=== PATIENT | female | born 1980 | race Caucasian/White ===

== ENCOUNTER → 2016-06-30 | Outpatient (CLI) | payer OTHER | LOC: FIMAGING 08:32 | PROVIDERS: ATTEND Obstetrics & Gynecology | DX: O09.522 Supervision of elderly multigravida, second trimester (principal); Z98.891 History of uterine scar from previous surgery; Z3A.19 19 weeks gestation of pregnancy ==

== ENCOUNTER → 2016-09-10 | Outpatient (CLI) | payer OTHER | LOC: FIMAGING 11:34 | PROVIDERS: ATTEND Obstetrics & Gynecology | DX: O09.523 Supervision of elderly multigravida, third trimester (principal); Z3A.29 29 weeks gestation of pregnancy ==

== ENCOUNTER 2016-11-12 17:19 | Inpatient (IN) | payer OTHER ==
[2016-11-12] MEDS ORDERED: TERBUTALINE SULFATE 1 MG/ML VIAL ONE (17:39)
[2016-11-12] MEDS ORDERED: OXYTOCIN 10 UNIT/ML VIAL ONE (17:39)
[2016-11-12] MEDS ORDERED: MISOPROSTOL 200 MCG TAB ONE (17:39)
--- NOTE | 2016-11-12 17:41 | OBPROG ---
OBG Labor Progress Note Assessment/Plan: Assessment:cat 1 fhr contractions irregular on the monitor clear fluid noted grossly ruptured nitrazine positive coping well call to dr. ocsar for POC dr. guerra notified ate at 1200 nkda Plan:repeat c/s prep for surgery now 11/12/16 17:39 Subjective: Came in with complaint of rom since 1600. Clear fluid noted on pad on admit. States felt irregular contractions since [address] regular [address] way to the hospital. States feeling decreased movement since rom - Physical Exam General Appearance: WD/WN, alert, no apparent distress Respiratory: chest non-tender, lungs clear, normal breath sounds Cardiac/Chest: regular rate, rhythm Abdomen: normal bowel sounds Extremities: normal range of motion, non-tender, normal inspection DTR- Lower Extremities: Knee (R): 1+, Knee (L): 1+ (no clonus) Skin: normal color, warm/dry Neuro/Psych: no motor/sensory deficits, alert, normal mood/affect, oriented x 3 ICD10 Worksheet Patient Problems: Problems Problem Status Onset delivery delivered Acute
[2016-11-12] MEDS ORDERED: PHENYLEPHRINE 10 MG/ML SDV ONE (17:48)
[2016-11-12] MEDS ORDERED: OXYTOCIN 100 UNITS/10 ML VIAL ONE (17:48)
[2016-11-12] MEDS ORDERED: ceFAZolin 2 GM/DEXTROSE 100 ML IV ONE (17:48)
[2016-11-12] MEDS ORDERED: CITRIC ACID/SODIUM CITRATE 30 ML UDCUP PO ONE (17:48)
[2016-11-12] MEDS ORDERED: BUPIVACAINE/DEXTROSE 7.5MG/ML 2 ML SPINAL AMP SP ONE (17:48)
[2016-11-12] MEDS ORDERED: LR 500 ML IV ONE (17:48)
[2016-11-12] MEDS ORDERED: fentaNYL 100 MCG/2 ML INJ ONE (17:49)
[2016-11-12] MEDS ORDERED: morphINE PF 5 MG/10 ML INJ ONE (17:49)
[2016-11-12 17:57] LABS: % IMMATURE GRANULYOCYTES 0.8 % (0.0-1.1); ABSOLUTE IMMATURE GRANULOCYTES 0.08 10^3/uL (0.00-0.10); ADD DIFF? NO; ADD MORPH? NO; ADD SCAN? NO; ATYPICAL LYMPHOCYTE FLAG 0 (0-99); FRAGMENT RBC FLAG 0 (0-99); HEMATOCRIT 39.1 % (38.0-47.0); HEMOGLOBIN 13.3 g/dL (12.6-16.3); LEFT SHIFT FLG 10 (0-99); LIPEMIA HEMOLYSIS FLAG 90 (0-99); MEAN CELL HEMOGLOBIN 29.4 pg (27.9-34.1); MEAN CELL VOLUME 86.5 fL (81.5-99.8); MEAN PLATELET VOLUME 12.8 fL (8.7-11.7); PLATELET CLUMPS FLAG 30 (0-99); PLATELET COUNT 173 10^3/uL (150-400); RED BLOOD CELL COUNT 4.52 10^6/uL (4.18-5.33); RED CELL DISTRIBUTION WIDTH 13.7 % (11.5-15.2)
[2016-11-12] MEDS ORDERED: LR 1,000 ML IV SCH (18:00)
[2016-11-12] MEDS ORDERED: ONDANSETRON 4 MG/2 ML VIAL ONE (18:16)
--- NOTE | 2016-11-12 18:41 | GHP ---
[f rep st] HISTORY AND PHYSICAL DATE OF ADMISSION: 11/12/2016 HISTORY OF PRESENT ILLNESS: The patient is a 35-year-old 2, para 1, with an EDC of 11/22/19 17, which gives her a gestational age of 38-5/7 weeks, who comes in with a complaint of rupture of m embranes since 4 o'clock on 11/12/2016, clear fluid. States feeling irregular contractions since 14 00 on 11/12/2016. More regular contractions since about 5 o'clock right before she got to the [facility]. The patient is leaking clear fluid with some bloody show. Diminished movement on admiss ion, category 1 strip after placed on monitor. MEDICAL HISTORY: Patient has a history of genital HSV, chlamydia in 2015. Previous urinary tract i nfections. Some history of depression. Previous in 2014 for breech. Delivered early due to thrombocytopenia. PAST SURGERY: Breast augmentation, knee surgery, wisdom teeth extraction and a previous C section. GYNECOLOGICAL HISTORY: Previous use of OCPs. Paps have been within normal limits. HISTORY: The patient is AMA, HSV positive, taking prophylaxis since 36 weeks. The patien t also has decreased platelets. The patient has been receiving care through [facility] si nce 37-3/7 weeks, was a transfer from [facility]. SOCIAL HISTORY: Patient is . Moshe is her significant other. Denies smoking. Denies drug us e. FAMILY HISTORY: Noncontributory. ALLERGIES: The patient is not allergic to any medication. MEDICATIONS SHE IS TAKING: Valtrex as well as vitamins. LABORATORY: Patient is O positive. Antibody negative. Rubella immune. Hepatitis negative. HIV n egative. Trio screen is negative. [facility] baseline labs on 10/19/2016 were within normal limits. Plat elets at that time were 149. Urine culture was negative. Gonorrhea and chlamydia were negative. A FP was negative on 06/25/2016. Progenity was negative. One hour GTT was within normal limits on 01/2017. The patient's GBS was negative. PHYSICAL EXAMINATION: GENERAL: Patient is awake, alert, oriented x3. LUNGS: Clear bilaterally. ABDOMEN: Bowel sounds are positive in all 4 quadrants. EXTREMITIES: DTRs are 1+ bilaterally. Nicole ans sign is negative. RUPTURE OF MEMBRANES: The patient was grossly ruptured but did verify with Ni trazine that it was positive. Continuing to leak clear fluid with positive bloody show. Category 1 strip. PLAN OF CARE: Repeat section. Dr. Darshana Madden was called as well as Anesthesia and kimberly n of care was discussed. /[id number]/MODL
[2016-11-12 19:07] LABS: BASE EXCESS CORD -1.9 mEq/L (-13.6--3.2); PH ARTERIAL CORD BLOOD 7.34 (7.10-7.37)
[2016-11-12 19:08] LABS: PH VENOUS CORD BLOOD 7.38 (7.20-7.42)
[2016-11-12] MEDS ORDERED: ACETAMINOPHEN 325 MG TAB PO PRN (19:55)
[2016-11-12] MEDS ORDERED: PROMETHAZINE HCL 25 MG/ML INJ IVP PRN (19:55)
[2016-11-12] MEDS ORDERED: PHENYLEPHRINE HCL 100 MCG/ML SYR IVP PRN (20:01)
[2016-11-12] MEDS ORDERED: MEPERIDINE 25 MG/ML SYR IVP PRN (20:01)
[2016-11-12] MEDS ORDERED: NALOXONE HCL 0.4 MG/ML INJ IVP PRN ×2 (20:01)
[2016-11-12] MEDS ORDERED: HYDROmorphONE/DILAUDID 1 MG/ML SYR IVP PRN (20:01)
[2016-11-12] MEDS ORDERED: fentaNYL 100 MCG/2 ML INJ IVP PRN (20:01)
[2016-11-12] MEDS ORDERED: OXYCODONE/APAP 5/325 TAB PO PRN (20:01)
[2016-11-12] MEDS ORDERED: ONDANSETRON 4 MG/2 ML VIAL IVP PRN ×2 (20:01)
--- NOTE | 2016-11-12 20:01 | OBDEL ---
Info Type: Repeat GBS+: No Indications for Delivery: SROM (Previous c/s) Vaginal Delivery - Labor and Delivery Onset of Contractions Date: 11/12/16 Onset of Contractions Time: 17:00 Cord Gases: Cord Gases Cord Blood PCO2 46.0 mmHg (37-60) 11/12/16 18:58 Cord Base Excess -1.9 mEq/L (-13.6--3.2) H 11/12/16 18:58 Cord ABG pH 7.34 (7.10-7.37) 11/12/16 18:58 Cord VBG pH 7.38 (7.20-7.42) 11/12/16 18:58 Operative Report - Delivery Pre-op Diagnoses: Previous c/s; Malpresentation-sandee breech; SROM Post-op Diagnoses: Previous c/s; Malpresentation-sandee breech; SROM; uterine window Nulliparous Prior to Delivery: No Presentation at Delivery: Breech Procedure: Unscheduled (SROM with painful ctx's), Low Transverse, Other (Specify ) (Removal of keloid scar) Surgeon: Darshana Madden Computer Engineering Technologist: Anitra Villarreal Anesthesiologist: Shad Cabrera Child Support Case Officer/INSPECTION MACHINE TENDER: Christiane Landaverde L&Cassy Analgesia/Anesthesia Type: Spinal Complications: Other (Specify) (Uterine window-very low thin BRIELLE) Findings: A viable male infant with 7 and 9 Apgars in sandee breech presentation; placenta delivered manually intact with 3-vc sent to pathology; cord blood as well as cord gases obtained; uterine window noted upon dissection of bladder flap. Grossly normal appearing uterus, tubes and ovaries Specimen(s)/Path: Placenta IV Fluid (ml): 2,600 EBL: 800 cc UO: 200 cc clear urine at the end of procedure Cord Gases: Cord Gases Cord Blood PCO2 46.0 mmHg (37-60) 11/12/16 18:58 Cord Base Excess -1.9 mEq/L (-13.6--3.2) H 11/12/16 18:58 Cord ABG pH 7.34 (7.10-7.37) 11/12/16 18:58 Cord VBG pH 7.38 (7.20-7.42) 11/12/16 18:58 Stanton Data Beard Delivery Date: 11/12/16 Delivery Time: 18:53 CHASITY: 11/21/16 Gestational Age: 38 week(s) and 5 day(s) Sex of Infant: Male Score (1 Min): 7 Score (5 Min): 9 ICD10 Worksheet Patient Problems: Problems Problem Status Onset Status post repeat low transverse section Acute SROM (spontaneous rupture of membranes) Acute Breech presentation Acute Previous section complicating Acute
--- NOTE | 2016-11-12 20:06 | POSTANESTH ---
Post Anesthetic Evaluation Cardiovascular Status: Normal, Stable Respiratory Status: Normal, Stable Level of Consciousness/Mental Status: Can Participate in Eval Pain Control: Adequate, Prn Tx Ordered Nausea/Vomiting Control: Adequate, Prn Tx Ordered Complications Possibly Related to Anesthesia: None Noted
[2016-11-12] MEDS ORDERED: OXYCODONE/APAP 5/325 TAB PO SCH (22:00)
[2016-11-13] MEDS: KETOROLAC 30 MG/1 ML SDV IVP SCH ×4 (05:36→23:51)
--- NOTE | 2016-11-13 13:18 | OBPP ---
Progress Note Assessment/Plan: Assessment: 35 y/o POD #1 s/p Rpt LTCS doing well. Plan: D/c mclaughlin, po pain meds. Ambulate with assistance and pt may shower when ambulating without difficulty. 11/13/16 13:17 Subjective: Pt is doing well this am. She has good pain control with Toradol and Duramorph. She has ambulated without difficulty and denies n/v. Baby is doing well with a good latch. Objective: 11/13/16 06:30 Patient ABO/Rh O POSITIVE 11/12/16 17:30 Temp Pulse Resp BP Pulse Ox 36.3 C 78 17 110/69 98 11/13/16 12:15 11/13/16 12:15 11/13/16 12:15 11/13/16 12:15 11/13/16 12:15 Uterine Position/Fundal Height: Umbilicus -2 Uterine Tone: Firm Physical Exam - Physical Exam General Appearance: WD/WN, alert, no apparent distress Neck: non-tender, full range of motion, supple Respiratory: chest non-tender, lungs clear, normal breath sounds Cardiac/Chest: regular rate, rhythm Abdomen: normal bowel sounds, incision (c/d/i) Extremities: swelling (no), Rose's sign (neg)
--- NOTE | 2016-11-13 14:49 | GOP ---
[f rep st] OPERATIVE REPORT DATE OF OPERATION: 11/12/2016 SURGEON: Darshana Madden DO NOODLE PRESS OPERATOR: Anitra Villarreal CNM. ANESTHESIA: Spinal. ANESTHESIOLOGIST: Shad Cabrera MD. PREOPERATIVE DIAGNOSIS: 1. Intrauterine at 38 weeks and 5 days. 2. Previous section. 3. Malpresentation, breech. 4. Spontaneous rupture of membranes, painful contractions. POSTOPERATIVE DIAGNOSIS: 1. Intrauterine at 38 weeks and 5 days. 2. Previous section. 3. Malpresentation, breech. 4. Spontaneous rupture of membranes, painful contractions. 5. Uterine window. PROCEDURE PERFORMED: Repeat section, removal of keloid scar. FINDINGS: A viable male infant, with 7 and 9 Apgars in sandee breech presentation. Cord gases: ABG 7.34, VBG 7.3. Placenta delivered manually intact with 3-vessel cord, sent to Pathology. Cord blood was obtained. A uterine window was noted upon dissection of bladder flap. Grossly normal- appearing uterus, tubes, and ovaries bilaterally. ESTIMATED BLOOD LOSS: 800 cc. INDICATIONS: Patient is a 35-year-old 2, para 1, at 38 and 5/7 weeks who presents to labor and delivery with spontaneous rupture of membranes. The patient states tila every 10-15 minutes. They are getting more painful. Denies any vaginal bleeding. Good movement noted. The patient does have a history of previous C section. Declines a trial of labor. On recent ultrasound, baby was in breech presentation. Surgical consents were obtained. We discussed the risks, benefits, alternatives, including removal of keloid scar and risks of bleeding, infection, damage to surrounding organs. The patient understands all risks at this time and wants to proceed with surgery. DESCRIPTION OF PROCEDURE: Patient was taken to the operating room where spinal anesthesia was administered without difficulty. The patient was prepped and draped in the usual sterile fashion, dorsal supine position with leftward tilt. Previous incision with keloid scar was removed using a scalpel and Allis clamps. This was carried through to the underlying layer of fascia using the Bovie. The fascia was incised in the midline and extended laterally using the Red scissors. There were noted to be some adhesions here from previous surgery. Nellie clamps were used to elevate the superior aspect of the fascial incision and the underlying rectus muscles were dissected off using the Red scissors as well as bluntly. Attention was turned to the inferior aspect of the fascial incision, which in a similar fashion was grasped with Nellie clamps , elevated, and the underlying rectus muscles dissected off bluntly as well as using the Red scissors. Rectus muscles were then dissected in the midline. The peritoneum was identified, and entered bluntly. Incision was then extended superiorly and inferiorly with good visualization of the bladder. The bladder blade was inserted. Vesicouterine peritoneum was identified, entered sharply with Metzenbaum scissors. Incision was then extended laterally and as the bladder flap was created digitally, there was a uterine window noted and uterine incision had been made digitally with visualization of the baby. The uterine incision was extended anteriorly and posteriorly with manual traction. The was delivered in sandee breech position without difficulty. The cord was clamped x2 and cut, and the infant was handed off to the waiting nursery nurse. It was a viable male , with 7 and 9 Apgars. Cord blood as well as cord gases were obtained. Placenta was then delivered manually intact with three-vessel cord, and sent to Pathology. Uterus was unable to be exteriorized , so it remained in the abdomen. We did clear it of all clots and debris and any remaining placental tissue. Uterine incision was then repaired in 2 layers using 0 Vicryl. Hemostasis was visualized. All gutters were then cleaned of any blood and blood clots were removed. The uterine incision was re-examined and noted to be oozy, so at this time surgical Nhan was placed on the uterine incision and hemostasis was noted. Rectus muscles were then reapproximated in the midline using 3-0 Vicryl. The fascia was then closed with 0 Vicryl suture. Subcutaneous was closed with 3-0 Vicryl. Hemostasis was noted. The skin was then closed with 4-0 Vicryl on a Zbigniew needle and covered with Steri-Strips. Sponge, lap, and instrument counts were correct x2. Patient tolerated the procedure, no complications. The patient was stable at the completion the procedure, was transferred to recovery room in stable condition. IV FLUIDS: 2600 cc LR. URINE OUTPUT: 200 cc of clear urine at the end of procedure. PATHOLOGY: Placenta. /[id number]/MODL MTDD
[2016-11-13] MEDS: DOCUSATE SODIUM 100 MG CAP PO PRN ×2 (15:49→22:15)
[2016-11-13] MEDS: IRON POLYSAC/IRON HEME 28 MG TAB PO SCH (15:49)
[2016-11-13] MEDS: SIMETHICONE 80 MG TAB CHEW PO PRN (23:51)
[2016-11-14] MEDS: IBUPROFEN 600 MG TAB PO PRN ×3 (06:20→19:16)
--- NOTE | 2016-11-14 08:48 | OBPP ---
Progress Note Assessment/Plan: Assessment: well denies difficulties nipples intact pain well managed ff@u scant rubra lochia incision approximated with ss applied vs wnl passing gas voiding without difficulty no swelling noted Plan: 11/12/16 17:39 11/14/16 08:46 Subjective: doing well denies difficulties. Small bruising to abdomen." There is a knot there" Objective: 11/13/16 06:30 Patient ABO/Rh O POSITIVE 11/12/16 17:30 Temp Pulse Resp BP Pulse Ox 37.1 C 89 16 112/72 94 11/14/16 01:10 11/14/16 01:10 11/14/16 01:10 11/14/16 01:10 11/13/16 16:00 Uterine Position/Fundal Height: At Umbilicus Uterine Tone: Firm Physical Exam - Physical Exam General Appearance: WD/WN, alert, no apparent distress Respiratory: chest non-tender, lungs clear, normal breath sounds Cardiac/Chest: regular rate, rhythm Abdomen: normal bowel sounds Extremities: normal range of motion, Rose's sign (negative bilaterally) DTR- Lower Extremities: Knee (R): 1+, Knee (L): 1+ (no clonus) Back: Normal inspection Skin: normal color, warm/dry Neuro/Psych: no motor/sensory deficits, alert, normal mood/affect, oriented x 3
[2016-11-14] MEDS: DOCUSATE SODIUM 100 MG CAP PO PRN (09:50)
[2016-11-14] MEDS: SIMETHICONE 80 MG TAB CHEW PO PRN ×2 (09:50→16:01)
[2016-11-14] MEDS: IRON POLYSAC/IRON HEME 28 MG TAB PO SCH (09:50)
[2016-11-14] MEDS ORDERED: MAGNESIUM HYDROXIDE 30 ML UDCUP PO PRN (10:42)
[2016-11-14] MEDS ORDERED: BISACODYL 10 MG SUPP PR PRN (10:42)
[2016-11-14] MEDS ORDERED: LACTULOSE 20 GM/30 ML UDCUP PO PRN (10:42)
[2016-11-14] MEDS ORDERED: POLYETHYLENE GLYCOL 3350 17 GM PKT PO PRN (10:42)
[2016-11-14] MEDS: SENNOSIDES/DOCUSATE SODIUM TAB PO SCH ×2 (12:51→21:41)
[2016-11-14 19:22] VITALS: RESP 18
[2016-11-15] MEDS: IBUPROFEN 600 MG TAB PO PRN ×2 (01:42→07:47)
[2016-11-15] MEDS: IRON POLYSAC/IRON HEME 28 MG TAB PO SCH (08:20)
[2016-11-15 08:47] VITALS: BP 117/79; PULSE 74; TEMP 98; O2SAT 97
[2016-11-15] MEDS: SENNOSIDES/DOCUSATE SODIUM TAB PO SCH (10:40)
--- NOTE | 2016-11-15 12:36 | OBPP ---
Progress Note Assessment/Plan: Assessment: 35 y/o POD #3 s/p Rpt LTCS doing well. Plan: D/c home with Ibuprofen and iron. Return to [facility] 2, 4 and 6 weeks. 11/13/16 13:17 11/15/16 12:35 Subjective: Pt is doing well. She has min pain controlled with Ibuprofen only. She is ambulating and voiding and had + BM. Breast feeding is going well, they are working on latching and baby is doing well. They are ready to d/c home. Objective: 11/13/16 06:30 Patient ABO/Rh O POSITIVE 11/12/16 17:30 Temp Pulse Resp BP Pulse Ox 36.6 C 74 18 117/79 97 11/15/16 08:44 11/15/16 08:44 11/15/16 08:44 11/15/16 08:44 11/15/16 08:44 Uterine Position/Fundal Height: Umbilicus -2 Uterine Tone: Firm Physical Exam - Physical Exam General Appearance: WD/WN, alert, no apparent distress Neck: non-tender, full range of motion, supple Respiratory: chest non-tender, lungs clear, normal breath sounds Cardiac/Chest: regular rate, rhythm Abdomen: normal bowel sounds, incision (c/d/i) Extremities: swelling (no), Rose's sign (neg)
--- NOTE | 2016-11-15 12:40 | OBGCSDC ---
General Delivery Information - General Info : 2 Para: 2 Abortions: 0 Delivery Physician/CNM: Darshana Madden Development Expert: Anitra Villarreal Admission Date: 11/12/16 Labs: Patient ABO/Rh O POSITIVE 11/12/16 17:30 Hct 34.6 % (38.0-47.0) L 11/13/16 06:30 Vaginal - Diagnosis Presentation at Delivery: Breech - Operations/Procedures L&D Analgesia/Anesthesia Type: Epidural - Delivery Number of Prior Sections: 1 Indications for Prior Section: Breech Indications for Current Section: Breech, Elective/Repeat Type: Repeat Surgical Procedures: Unscheduled Intra-op Complications: None EBL: 800 L&D Analgesia/Anesthesia Type: Epidural - Hospital Course Antepartum: transfer from [facility] [place] @ 37 weeks, AMA, Gestational thrombocytopenia, HSV on suppression, h/o depression, h/o c section secondary to breech desires rpt Intrapartum: pt presented in labor, breech with h/o c section, surgery performed in labor : normal pp course, pain controlled with Ibuprofen, d/c home POD #3 Data Beard Delivery Date: 11/12/16 Delivery Time: 18:53 CHASITY: 11/21/16 Gestational Age: 39 week(s) and 1 day(s) Sex of Infant: Male Weight (gm): 3018 kg Score (1 Min): 7 Score (5 Min): 9 Discharge Information - Discharge Information Discharge Medications: Iron, Ibuprofen Condition: Good Instruction/Follow Up: Two Weeks, Four Weeks, Six Weeks Discharge Physician/CNM: Anita Otero
== END 2016-11-15 13:00 | disposition home or self-care (01) | DRG 765 ==
LOC: FLD 17:19 → FOB 21:00
PROVIDERS: ADMIT Obstetrics & Gynecology; ATTEND Obstetrics & Gynecology
PROC: 10D00Z1 Extraction of Products of Conception, Low, Open Approach (ICD-10-PCS; principal; 2016-11-12)
DX: O34.219 Maternal care for unspecified type scar from previous cesarean delivery (principal); Z37.0 Single live birth; O32.1XX0 Maternal care for breech presentation, not applicable or unspecified; O99.12 Other diseases of the blood and blood-forming organs and certain disorders involving the immune mechanism complicating childbirth; D69.6 Thrombocytopenia, unspecified; Z3A.39 39 weeks gestation of pregnancy; O98.52 Other viral diseases complicating childbirth; B00.9 Herpesviral infection, unspecified
CPT/HCPCS: J0690; J1200; J1885; J2274; J2370; J2405; J2590; J3010; J3105

== ENCOUNTER → 2016-11-25 | Outpatient (CLI) | payer OTHER | LOC: FLACT 12:52 | PROVIDERS: ATTEND Obstetrics & Gynecology | DX: Z39.1 Encounter for care and examination of lactating mother (principal) | CPT/HCPCS: G0463 ==

== ENCOUNTER → 2016-12-31 | Outpatient (CLI) | payer OTHER | LOC: FLACT 09:55 | PROVIDERS: ATTEND Obstetrics & Gynecology | DX: Z39.1 Encounter for care and examination of lactating mother (principal) | CPT/HCPCS: G0463 ==

== ENCOUNTER → 2017-01-27 | Outpatient (CLI) | payer OTHER | LOC: FIMAGING 14:27 | PROVIDERS: ATTEND Obstetrics & Gynecology | DX: N85.2 Hypertrophy of uterus (principal) ==